=== PATIENT | female | born 1950 | race African-American/Black ===

== ENCOUNTER 2021-12-03 14:17 | Inpatient (IN) ==
[2021-12-03] MEDS ORDERED: NALOXONE 0.4 MG/ML VIAL IV STA (15:14)
[2021-12-03] MEDS ORDERED: cefTRIAXone 1,000 MG in SODIUM CHLORIDE 0.9% 100 ML IV STA (15:16)
[2021-12-03] MEDS ORDERED: SODIUM CHLORIDE 0.9% 500 ML IV STA (15:16)
[2021-12-03 16:41] LABS: Basophils % 0.2 % (0.0-0.8); Eosinophils % 0.1 % (0.00-10.9); Hematocrit 37.4 VOL% (35.7-47.0); Hemoglobin 12.1 GM/DL (12.0-16.0); Immature Granulocytes % 0.6 %; Immature Granulocytes Absolute 0.08 #; Lymphocytes # 1.3 10*3/uL (1.4-4.0); Mean Corpuscular HGB Conc 32.4 GM/DL (32-36); Mean Corpuscular Volume 90.8 FL (87-102); Monocytes % 6.3 % (1.7-12.7); Neutrophils % 82.8 % (38.7-73.9); Platelet Count 120 T/CUMM (130-400); Red Blood Count 4.12 MC/CUMM (3.8-5.5)
[2021-12-03 17:05] LABS: Alanine Aminotransferase 18 U/L (13-56); Albumin 3.1 G/DL (3.4-5.0); Alkaline Phosphatase 84 U/L (45-117); Aspartate Amino Transferase 51 U/L (0-37); Blood Urea Nitrogen 35 MG/DL (7-18); Calcium 8.9 MG/DL (8.5-10.1); Carbon Dioxide 29 MMOL/L (21-32); Estimated Glom Filtration Rate 27 ML/MIN; Glucose 256 MG/DL (74-106); Osmolality,Calculated 295.4 MOS/KG (273-304); Potassium 5.7 MMOL/L (3.5-5.1); Sodium 140 MMOL/L (136-145); Total Protein 7.2 G/DL (6.4-8.2)
[2021-12-03 17:05] LABS: Bilirubin,Urine Negative (Negative); Blood, Urine Moderate mg/dL (Negative); Glucose,Urine (UA) 150 mg/dL (Negative); Ketones,Urine Negative (Negative); Nitrite,Urine Negative (Negative); Protein,Urine >=500 MG/DL; RBC,Urine 166 /HPF (0-4); Urine Appearance CLOUDY (Clear); Urine Color Yellow (Yellow); Urine Specific Gravity 1.011 (1.001-1.035); Urine Urobilinogen < 2.0 EU/DL (<2.0)
[2021-12-03] MEDS ORDERED: MEROPENEM 500 MG in SODIUM CHLORIDE 0.9% 100 ML IV ONE (17:11)
[2021-12-03] MEDS ORDERED: SODIUM POLYSTYRENE SULFATE 15 GM/60 ML BOTTLE PO STA (17:28)
[2021-12-03] MEDS ORDERED: GLUCAGON 1 MG VIAL IM PRN (17:42)
[2021-12-03] MEDS ORDERED: DEXTROSE 50% 25 GM/50 ML SYRINGE IV PRN (17:42)
[2021-12-03] MEDS ORDERED: ONDANSETRON 4 MG/2 ML VIAL IV PRN (17:43)
[2021-12-03] MEDS ORDERED: ALBUTEROL 2.5 MG/3 ML NEB RESP TX PRN (17:43)
[2021-12-03 17:58] LABS: ABG Base Excess -1.8 MMOL/L (-2.5-2.5); ABG HCO3 22.7 MMOL/L (20-26); ABG Oxygen Saturation 88.4 % (95-100); ABG PH 7.388 (7.35-7.45); ABG PO2 57.2 MM HG (80-95); ABG TCO2 20.4 MMOL/L (23-27)
[2021-12-03 17:59] LABS: Allen Test Positive; Pt O2 Delivery Device Room Air
[2021-12-03 18:19] LABS: Band Neutrophils 2 % (0-10); Lymphocytes 14 % (20-55); Reactive Lymphocytes Few; Segmented Neutrophils 74 % (50-85); Total Cells Counted 100
[2021-12-03 18:20] LABS: Platelet Estimate Adequate
[2021-12-03 18:24] LABS: Thyroid Stimulating Hormone 0.694 uIU/ml (0.358-3.74)
[2021-12-03] MEDS: ALBUTEROL/IPRATROPIUM 3 ML NEB RESP TX SCH (20:00)
[2021-12-03] MEDS: INSULIN REGULAR 100 UNIT/ML SUBCUT SCH (22:26)
[2021-12-03] MEDS: FUROSEMIDE 40 MG/4 ML VIAL IV SCH (22:26)
[2021-12-03] MEDS: ATORVASTATIN 40 MG TABLET PO SCH (22:26)
[2021-12-03] MEDS: APIXABAN 5 MG TABLET PO SCH (22:26)
[2021-12-04] MEDS: ALBUTEROL/IPRATROPIUM 3 ML NEB RESP TX SCH ×4 (00:19→19:37)
[2021-12-04] MEDS ORDERED: SODIUM POLYSTYRENE SULFATE 15 GM/60 ML BOTTLE PO STA (00:45)
[2021-12-04] MEDS: MEROPENEM 500 MG in SODIUM CHLORIDE 0.9% 100 ML IV SCH ×2 (05:21→17:33)
[2021-12-04] MEDS: APIXABAN 5 MG TABLET PO SCH ×2 (09:32→22:16)
[2021-12-04] MEDS: ASPIRIN EC 81 MG TABLET PO SCH (09:32)
[2021-12-04] MEDS: PANTOPRAZOLE 40 MG TABLET PO SCH (09:32)
[2021-12-04] MEDS: INSULIN REGULAR 100 UNIT/ML SUBCUT SCH ×4 (09:33→22:16)
[2021-12-04] MEDS: FUROSEMIDE 40 MG/4 ML VIAL IV SCH ×2 (09:33→17:31)
[2021-12-04 09:46] LABS: Basophils % 0.3 % (0.0-0.8); Eosinophils # 0.1 10*3/uL (0.0-0.87); Eosinophils % 0.6 % (0.00-10.9); Hematocrit 36.3 VOL% (35.7-47.0); Hemoglobin 11.8 GM/DL (12.0-16.0); Immature Granulocytes % 0.5 %; Immature Granulocytes Absolute 0.05 #; Lymphocytes # 1.6 10*3/uL (1.4-4.0); Lymphocytes % 16.6 % (21.3-54.2); Mean Corpuscular HGB Conc 32.5 GM/DL (32-36); Mean Corpuscular Volume 90.5 FL (87-102); Monocytes % 5.5 % (1.7-12.7); Neutrophils % 76.5 % (38.7-73.9); Platelet Count 93 T/CUMM (130-400); Red Blood Count 4.01 MC/CUMM (3.8-5.5); Red Cell Distribution Width 15.9 % (9.3-17.3); White Blood Count 9.4 T/CUMM (4-12)
[2021-12-04 09:59] LABS: Calcium 8.9 MG/DL (8.5-10.1); Osmolality,Calculated 293.1 MOS/KG (273-304); Potassium 4.4 MMOL/L (3.5-5.1)
[2021-12-04 10:10] LABS: Anisocytosis 1+; Band Neutrophils 4 % (0-10); Lymphocytes 19 % (20-55); Macrocytosis Slight; Platelet Estimate Decreased; Segmented Neutrophils 73 % (50-85); Total Cells Counted 100
[2021-12-04] MEDS: ATORVASTATIN 40 MG TABLET PO SCH (22:16)
[2021-12-05] MEDS: ALBUTEROL/IPRATROPIUM 3 ML NEB RESP TX SCH ×4 (01:18→19:33)
[2021-12-05] MEDS: MEROPENEM 500 MG in SODIUM CHLORIDE 0.9% 100 ML IV SCH (05:54)
[2021-12-05 07:21] LABS: Basophils % 0.3 % (0.0-0.8); Hematocrit 34.5 VOL% (35.7-47.0); Hemoglobin 11.1 GM/DL (12.0-16.0); Immature Granulocytes % 0.3 %; Immature Granulocytes Absolute 0.03 #; Lymphocytes # 1.6 10*3/uL (1.4-4.0); Lymphocytes % 18.2 % (21.3-54.2); Mean Corpuscular HGB Conc 32.2 GM/DL (32-36); Mean Corpuscular Volume 90.1 FL (87-102); Mean Platelet Volume 14.1 FL (9.6-12.0); Monocytes % 6.9 % (1.7-12.7); Neutrophils % 74.3 % (38.7-73.9); Platelet Count 119 T/CUMM (130-400); Red Blood Count 3.83 MC/CUMM (3.8-5.5); Red Cell Distribution Width 15.9 % (9.3-17.3); White Blood Count 8.8 T/CUMM (4-12)
[2021-12-05 07:47] LABS: Calcium 8.3 MG/DL (8.5-10.1); Potassium 4.1 MMOL/L (3.5-5.1)
[2021-12-05] MEDS ORDERED: NON-FORMULARY MEDICATION (Aspirin 81 mg Tablet) PO SCH (09:00)
[2021-12-05] MEDS: INSULIN REGULAR 100 UNIT/ML SUBCUT SCH ×4 (09:44→20:41)
[2021-12-05] MEDS: FUROSEMIDE 40 MG/4 ML VIAL IV SCH (09:45)
[2021-12-05] MEDS: ASPIRIN EC 81 MG TABLET PO SCH (09:45)
[2021-12-05] MEDS: APIXABAN 5 MG TABLET PO SCH ×2 (09:45→20:40)
[2021-12-05] MEDS: AMIODARONE 200 MG TABLET PO SCH (09:45)
[2021-12-05] MEDS: PANTOPRAZOLE 40 MG TABLET PO SCH (09:45)
[2021-12-05] MEDS: POLYETHYLENE GLYCOL POWDER 17 GM PACK PO SCH (11:56)
[2021-12-05] MEDS ORDERED: cefTRIAXone 1,000 MG in SODIUM CHLORIDE 0.9% 100 ML IV SCH (12:30)
[2021-12-05] MEDS: PREGABALIN 75 MG CAPSULE PO SCH ×2 (15:25→20:40)
[2021-12-05] MEDS: ATORVASTATIN 40 MG TABLET PO SCH (20:40)
[2021-12-06] MEDS: ALBUTEROL/IPRATROPIUM 3 ML NEB RESP TX SCH ×3 (01:26→13:10)
[2021-12-06 05:32] LABS: Basophils % 0.5 % (0.0-0.8); Eosinophils % 0.1 % (0.00-10.9); Hematocrit 35.2 VOL% (35.7-47.0); Hemoglobin 11.4 GM/DL (12.0-16.0); Immature Granulocytes % 0.3 %; Immature Granulocytes Absolute 0.02 #; Lymphocytes # 1.8 10*3/uL (1.4-4.0); Lymphocytes % 24.9 % (21.3-54.2); Mean Corpuscular HGB Conc 32.4 GM/DL (32-36); Mean Platelet Volume 13.2 FL (9.6-12.0); Monocytes % 7.4 % (1.7-12.7); Neutrophils % 66.8 % (38.7-73.9); Platelet Count 120 T/CUMM (130-400); Red Blood Count 3.91 MC/CUMM (3.8-5.5); Red Cell Distribution Width 15.7 % (9.3-17.3); White Blood Count 7.3 T/CUMM (4-12)
[2021-12-06 05:46] LABS: Calcium 8.9 MG/DL (8.5-10.1); Osmolality,Calculated 288.1 MOS/KG (273-304); Potassium 3.9 MMOL/L (3.5-5.1)
[2021-12-06] MEDS ORDERED: FUROSEMIDE 40 MG/4 ML VIAL IV SCH (09:00)
[2021-12-06] MEDS: INSULIN REGULAR 100 UNIT/ML SUBCUT SCH ×3 (09:59→16:08)
[2021-12-06] MEDS: AMIODARONE 200 MG TABLET PO SCH (10:00)
[2021-12-06] MEDS: PANTOPRAZOLE 40 MG TABLET PO SCH (10:00)
[2021-12-06] MEDS: APIXABAN 5 MG TABLET PO SCH (10:00)
[2021-12-06] MEDS: PREGABALIN 75 MG CAPSULE PO SCH ×2 (10:00→16:09)
[2021-12-06] MEDS: POLYETHYLENE GLYCOL POWDER 17 GM PACK PO SCH (10:01)
[2021-12-06] MEDS: ASPIRIN EC 81 MG TABLET PO SCH (10:01)
[2021-12-06 16:08] VITALS: BP 128/74
[2021-12-06] MEDS ORDERED: CEFUROXIME 500 MG TABLET PO SCH (21:00)
== END 2021-12-06 16:37 | disposition swing bed (61) | DRG 291 ==
LOC: N.ED 14:17 → N.EDINP 17:20 → N.TELEN 12-04 03:57
PROVIDERS: ADMIT Internal Medicine; ATTEND Internal Medicine